=== PATIENT | male | born 1990 | race Caucasian/White ===

== ENCOUNTER 2021-02-01 14:40 | Emergency (ER) | payer OTHER | END 2021-02-02 09:15 | LOC: FER 14:40 | DX: F32.9 Major depressive disorder, single episode, unspecified (principal); F17.210 Nicotine dependence, cigarettes, uncomplicated; Z86.19 Personal history of other infectious and parasitic diseases; Z91.5 Personal history of self-harm; Z20.822 Contact with and (suspected) exposure to COVID-19 | CPT/HCPCS: 99285; U0002 ==